=== PATIENT | female | born 1950 | race Caucasian/White ===

== ENCOUNTER → 2016-11-11 | Outpatient (CLI) | payer MEDICARE, BC ==
[~2016-11-11] MED LIST: ELAVIL10 MG PO; FLEXERIL 1010 MG/TAB PO; LEVOXYL0.025 MG PO; LOVENOX 4040 MG/0.4 SQ; [UNRECOGNIZED DRUG - OTHER]
== END ==
LOC: COL.RAD 09:01
DX: M25.551 Pain in right hip (principal)
CPT/HCPCS: J3301; Q9967

== ENCOUNTER → 2017-07-21 | Outpatient (CLI) | payer MEDICARE, BC | LOC: MC.RAD 07:40 | DX: Z12.31 Encounter for screening mammogram for malignant neoplasm of breast (principal); N63.20 Unspecified lump in the left breast, unspecified quadrant ==

== ENCOUNTER → 2017-07-25 | Outpatient (CLI) | payer MEDICARE, BC | LOC: MC.RAD 13:00 | DX: N63.21 Unspecified lump in the left breast, upper outer quadrant (principal); R92.1 Mammographic calcification found on diagnostic imaging of breast ==

== ENCOUNTER → 2018-07-31 | Outpatient (CLI) | payer MEDICARE, BC | LOC: MC.RAD 08:20 | DX: Z12.31 Encounter for screening mammogram for malignant neoplasm of breast (principal) ==

== ENCOUNTER → 2018-12-21 | Outpatient (CLI) | payer MEDICARE, BC | LOC: COL.RAD 11:12 | DX: R07.89 Other chest pain (principal) | CPT/HCPCS: Q9967 ==

== ENCOUNTER → 2019-08-17 | Outpatient (CLI) | payer MEDICARE, BC | LOC: MC.RAD 10:43 | DX: Z12.31 Encounter for screening mammogram for malignant neoplasm of breast (principal); N63.11 Unspecified lump in the right breast, upper outer quadrant; Z98.82 Breast implant status ==

== ENCOUNTER → 2019-08-23 | Outpatient (CLI) | payer MEDICARE, BC | LOC: MC.RAD 07:30 | DX: N63.10 Unspecified lump in the right breast, unspecified quadrant (principal) ==

== ENCOUNTER → 2019-08-24 | Outpatient (CLI) | payer MEDICARE, BC | LOC: MC.RAD 06:57 | DX: N63.10 Unspecified lump in the right breast, unspecified quadrant (principal) ==

== ENCOUNTER → 2020-08-18 | Outpatient (CLI) | payer MEDICARE, BC | LOC: MC.RAD 10:04 | DX: Z12.31 Encounter for screening mammogram for malignant neoplasm of breast (principal); Z98.82 Breast implant status ==

== ENCOUNTER → 2020-08-25 | Outpatient (CLI) | payer MEDICARE, BC | LOC: MC.RAD 06:58 | DX: N64.89 Other specified disorders of breast (principal) ==

== ENCOUNTER → 2021-10-01 | Outpatient (CLI) | payer MEDICARE, BC | LOC: MC.RAD 10:05 | DX: Z12.31 Encounter for screening mammogram for malignant neoplasm of breast (principal) ==

== ENCOUNTER → 2022-01-09 | Outpatient (CLI) | payer MEDICARE, BC ==
[~2022-01-09] VITALS: Ht 177.8 cm; Wt 111.6 kg
[~2022-01-09] MED LIST changes: +ASPIRIN E.C. 8181 MG PO; +CENTRUM SILVER1 CTB PO; +HYZAAR 50-12.1 UDTAB PO; +LEVOXYL0.075 MG PO; +LIPITOR 10MG10 MG PO; +TOPROL XL 25MG25 MG PO
[2022-01-09 10:45] VITALS: BP 126/80; PULSE 76; TEMP 97.6
[2022-01-09 12:02] VITALS: BP 145/80; PULSE 102
[2022-01-09 12:03] VITALS: BP 132/83; PULSE 96
[2022-01-09 12:04] VITALS: BP 128/83; PULSE 98
[2022-01-09 12:05] VITALS: BP 146/83; PULSE 95
== END ==
LOC: COL.CARD 10:29
DX: I10 Essential (primary) hypertension (principal); K21.9 Gastro-esophageal reflux disease without esophagitis; R06.00 Dyspnea, unspecified; M79.671 Pain in right foot; E78.5 Hyperlipidemia, unspecified
CPT/HCPCS: A9500; J2785

== ENCOUNTER → 2022-01-28 | Outpatient (CLI) | payer MEDICARE, BC | LOC: COL.PUL 11:01 | DX: R06.00 Dyspnea, unspecified (principal) ==

== ENCOUNTER → 2022-05-01 | Outpatient (CLI) | payer MEDICARE, BC | LOC: COL.PUL 04-04 13:00 | DX: R06.02 Shortness of breath (principal) | CPT/HCPCS: J7674 ==

== ENCOUNTER → 2022-05-21 | Outpatient (CLI) | payer MEDICARE, BC | LOC: COL.VAS 09:27 | DX: I08.3 Combined rheumatic disorders of mitral, aortic and tricuspid valves (principal) ==